=== PATIENT | female | born 1955 | race Caucasian/White ===

== ENCOUNTER 2020-02-04 15:11 | Outpatient (CLI) | payer MEDICARE ==
--- NOTE | 2020-02-04 17:48 | RAD ---
CHEST 2 VIEWS: HISTORY: Cough for 3 weeks. FINDINGS: Heart size is within normal limits. The lungs are clear. No confluent pneumonia, overt edema, or pl eural effusion. IMPRESSION: No significant active intrathoracic disease. POS: RRE
== END 2020-02-04 15:12 | disposition home or self-care (01) ==
LOC: SCSRAD 15:11
PROVIDERS: ATTEND Family Medicine
DX: R05 Cough (principal)
CPT/HCPCS: 71046

== ENCOUNTER 2021-03-06 08:45 | Outpatient (CLI) | payer MEDICARE ==
[2021-03-06 11:38] LABS: Anion Gap 14 mmol/L (10-20); BUN (Urea Nitrogen) 15 mg/dL (9.8-20.1); Calc. Creatinine Clearance 0 mL/min (70-130); Calcium 10.2 mg/dL (7.8-10.44); Carbon Dioxide 27 mmol/L (23-31); Chloride 102 mmol/L (98-107); Glucose 83 mg/dL (80-115); Potassium 5.3 mmol/L (3.5-5.1); Sodium 138 mmol/L (136-145)
[2021-03-06 11:40] LABS: #Eosinphils 0.2 10x3/uL (0.0-0.5); #Monocytes 0.6 10x3/uL (0.0-1.1); #Neutrophils 2.7 10x3/uL (1.5-8.4); %Basophils 0.5 % (0.0-2.0); %Eosinophils 2.9 % (0.0-6.0); %Lymphocytes 43.1 % (18.0-47.0); %Monocytes 9.6 % (0.0-10.0); %Neutrophils 43.7 % (40.0-75.0); Hemoglobin 13.4 g/dL (12.0-15.5); Mean Corpuscular HGB CONC 33.3 g/dL (32.0-36.0); Mean Corpuscular Hemoglobin 33.3 pg (27.0-33.0); Mean Platelet Volume 9.9 fl (7.4-10.4); Platelet Count 178 10x3/uL (150-450); RBC Distribution Width 12.2 % (11.5-14.5); Red Blood Cell (RBC) Count 4.02 10x6/uL (3.90-5.03); White Blood Cell (WBC) Count 6.2 10x3/uL (3.5-10.5)
[2021-03-06 11:48] LABS: PTT 27.1 sec (22.0-33.0); Prothrombin Time 10.9 sec (9.5-12.1)
== END 2021-03-06 08:46 | disposition home or self-care (01) ==
LOC: LABBT 08:45
PROVIDERS: ATTEND Internal Medicine Cardiovascular Disease
DX: Z01.818 Encounter for other preprocedural examination (principal); Z51.81 Encounter for therapeutic drug level monitoring; I51.9 Heart disease, unspecified; Z79.01 Long term (current) use of anticoagulants
CPT/HCPCS: 80048; 85025; 85610; 85730; 93005; 93010

== ENCOUNTER 2021-03-09 09:08 | Day surgery (SDC) | payer MEDICARE ==
[2021-03-06 11:26] VITALS: BMI 25.7
[2021-03-09] MEDS ORDERED: Heparin 10,000 UNITS/ 10 ML VIAL ONE (11:47)
[2021-03-09] MEDS ORDERED: Lidocaine 1% (PF) 30 ML VIAL ONE (11:48)
[2021-03-09] MEDS ORDERED: Propofol 500 MG/50 ML VIAL ONE ×2 (11:49→12:34)
[2021-03-09] MEDS ORDERED: Fentanyl 100 MCG/2 ML VIAL ONE (11:50)
[2021-03-09] MEDS ORDERED: Lidocaine 1% PF 5 ML VIAL ONE (12:12)
[2021-03-09] MEDS ORDERED: PROPOFOL 200 MG/20 ML VIAL ONE (12:12)
[2021-03-09] MEDS ORDERED: Midazolam HCl 2 mg/2 ml Vial ONE ×2 (12:25→14:46)
[2021-03-09] MEDS ORDERED: Isoproterenol 0.2 MG/1 ML AMP ONE (13:13)
[2021-03-09] MEDS ORDERED: PROPOFOL 20 ML ONE ×2 (13:32→14:05)
[2021-03-09] MEDS ORDERED: Meperidine HCl/PF 25 MG/ML VIAL ONE (14:57)
== END 2021-03-09 19:25 | disposition home or self-care (01) ==
LOC: CCL 09:08
PROVIDERS: ATTEND Internal Medicine Cardiovascular Disease
PROC: 4A023FZ Measurement of Cardiac Rhythm, Percutaneous Approach (ICD-10-PCS; principal; 2021-03-09)
PROC: 4A0234Z Measurement of Cardiac Electrical Activity, Percutaneous Approach (ICD-10-PCS; 2021-03-09)
PROC: 02583ZZ Destruction of Conduction Mechanism, Percutaneous Approach (ICD-10-PCS; 2021-03-09)
PROC: 02K83ZZ Map Conduction Mechanism, Percutaneous Approach (ICD-10-PCS; 2021-03-09)
DX: I47.1 Supraventricular tachycardia (principal); I48.92 Unspecified atrial flutter; I10 Essential (primary) hypertension; E78.5 Hyperlipidemia, unspecified; Z79.899 Other long term (current) drug therapy; Z87.891 Personal history of nicotine dependence; Z88.0 Allergy status to penicillin
CPT/HCPCS: 76942; 93005; 93010; 93613; 93621; 93623; 93653; C1730; C1732; J1644; J2001; J2175; J2250; J2704; J3010

== ENCOUNTER 2022-08-17 14:09 | Outpatient (CLI) | payer MEDICARE | END 2022-08-17 14:10 | disposition home or self-care (01) | LOC: BICMAMMO 14:09 | PROVIDERS: ATTEND Family Medicine | DX: Z12.31 Encounter for screening mammogram for malignant neoplasm of breast (principal); Z13.820 Encounter for screening for osteoporosis; Z78.0 Asymptomatic menopausal state; E28.39 Other primary ovarian failure | CPT/HCPCS: 77063; 77067; 77080 ==